=== PATIENT | female | born 1965 | race Caucasian/White ===

== ENCOUNTER → 2022-10-12 | Outpatient (CLI) | payer SELFPAY ==
[2022-10-12 10:58] VITALS: BP 129/70
--- NOTE | 2022-10-14 09:00 | Cardiology Stress Test Report ---
Stress Test Report Date of Procedure/Referring: Date of Procedure: Oct 12, 2022 PCP Tarik Quiñones MD Admitting Physician Admitting Physician: Attending Physician: Vickie Hutchison MD Baseline Heart Rate: 59 Baseline Blood Pressure: Blood Pressure Systolic: 129 Blood Pressure Diastolic: 70 Baseline EKG: Baseline EKG: NSR Summary/Conclusion: Summary: In summary, the patient started exercising with a baseline heart rate, blood pressure and EKG mentioned above Patient was able to exercise for a total of 9 minutes on Cody protocol, METs 10.5 Maximum heart rate 139 Maximum blood pressure 176/61 Stress EKG, Minimal nondiagnostic changes Recovery EKG , Return to baseline Conclusion: 1. Good exercise tolerance for a total of 9 minutes on Cody protocol, 10.5 METs, achieving 86 percent of maximum expected heart rate 2. Minimal nondiagnostic EKG changes with exercise returned to baseline during recovery 3. No arrhythmia was noted Copy Copies To 1: TARIK QUIÑONES MD, BASHAR J MD Oct 14, 2022 09:00
== END ==
LOC: CARD 10:04
PROVIDERS: ATTEND Internal Medicine Cardiovascular Disease
DX: R07.9 Chest pain, unspecified (principal); R00.2 Palpitations
CPT/HCPCS: 93017